=== PATIENT | female | born 1935 | race Two or more races ===

== ENCOUNTER → 2016-12-15 | Outpatient (CLI) | payer OTHER ==
[~2016-12-15] MED LIST: ACET250T3 PO; ASPI-1093 PO; CLOP75 PO; FURO40TA5 PO; GABA-531 PO; INSLAN SQ; KDUR20 PO; LEVO250 PO; LISI10TA PO; METO-325 PO; SIMV40TA5 PO; TRAM50TA4 PO
== END | disposition home or self-care (01) ==
LOC: MSR 13:56
PROVIDERS: ATTEND Internal Medicine Critical Care Medicine
DX: J98.11 Atelectasis (principal); I70.0 Atherosclerosis of aorta; S22.42XA Multiple fractures of ribs, left side, initial encounter for closed fracture; M77.8 Other enthesopathies, not elsewhere classified; X58.XXXA Exposure to other specified factors, initial encounter; Y93.89 Activity, other specified; Y92.89 Other specified places as the place of occurrence of the external cause; Y99.8 Other external cause status
CPT/HCPCS: 71020; 94010; 94726; 94727; 94729

== ENCOUNTER → 2018-05-07 | Outpatient (CLI) | payer MEDICARE, OTHER ==
[~2018-05-07] MED LIST changes: -ASPI-1093 PO; +ASPI-1182 PO; -METO-325 PO; +METO-391 PO
== END | disposition home or self-care (01) ==
LOC: RADPV 15:54
PROVIDERS: ATTEND Family Medicine
DX: M25.572 Pain in left ankle and joints of left foot (principal); M77.32 Calcaneal spur, left foot

== ENCOUNTER 2019-01-14 09:12 | Emergency (ER) | payer MEDICARE, OTHER ==
[~2019-01-14] VITALS: Ht 152.4 cm; Wt 90.9 kg
[~2019-01-14 09:12] MED LIST changes: -CLOP75 PO; +CLOP75TA3 PO
[2019-01-14 09:46] LABS: GLUCOSE,POINT OF CARE 262 MG/DL (70-110)
[2019-01-14] MEDS ORDERED: ONDANSETRON HCL 4 MG/2 ML VIAL IM ONE (10:00)
[2019-01-14] MEDS ORDERED: MORPHINE SULFATE 4 MG/ML SYRINGE IM ONE (10:00)
[2019-01-14] MEDS ORDERED: HYDROCODONE/ACETAMINOPHEN 5-325 MG TABLET PO ONE (11:30)
[2019-01-14] MEDS ORDERED: LISINOPRIL 10 MG TABLET PO ONE (11:30)
[2019-01-14 11:44] VITALS: BP 92/61
== END 2019-01-14 12:56 | disposition home or self-care (01) ==
LOC: EMS 09:14
DX: M16.31 Unilateral osteoarthritis resulting from hip dysplasia, right hip (principal); G89.29 Other chronic pain; M79.604 Pain in right leg; I10 Essential (primary) hypertension; E11.9 Type 2 diabetes mellitus without complications; E78.00 Pure hypercholesterolemia, unspecified; I25.2 Old myocardial infarction; Z79.4 Long term (current) use of insulin; Z79.82 Long term (current) use of aspirin; Z79.899 Other long term (current) drug therapy
CPT/HCPCS: 73502; 73552; 73562; 82962; 96372; 99283; J2270; J2405